=== PATIENT | female | born 1990 | race Caucasian/White ===

== ENCOUNTER 2021-02-22 21:09 | Emergency (ER) | payer MEDICARE, MEDICAID ==
[~2021-02-22] VITALS: Ht 154.9 cm; Wt 102.3 kg
[2021-02-22] MEDS ORDERED: TOPAMAX50 M1 PO (21:26)
[2021-02-22] MEDS ORDERED: CEPHALEXIN500 M1 PO (22:12)
[2021-02-22 22:22] VITALS: BP 129/93
== END 2021-02-22 22:22 | disposition home or self-care (01) ==
LOC: ED 21:09
DX: L03.115 Cellulitis of right lower limb (principal)

== ENCOUNTER 2023-12-07 00:10 | Emergency (ER) | payer MEDICARE, MEDICAID ==
[~2023-12-07 00:10] MED LIST: CEPHALEXIN500 M1 PO; TOPAMAX50 M1 PO
[2023-12-07] MEDS ORDERED: METRONIDAZOLE500 M1 PO (00:45)
[2023-12-07] MEDS ORDERED: CEPHALEXIN500 M1 PO (00:45)
[2023-12-07] MEDS ORDERED: Cephalexin 250 MG/5 ML Oral Susp 100 ML BOTTLE PO ONE (00:45)
[2023-12-07] MEDS ORDERED: metroNIDAZOLE 250 MG TABLET PO ONE (00:45)
[2023-12-07 00:54] VITALS: BP 125/80
[2023-12-07] MEDS ORDERED: Cephalexin 250 MG CAP PO ONE (01:00)
== END 2023-12-07 00:55 | disposition home or self-care (01) ==
LOC: ED 00:10
DX: L05.91 Pilonidal cyst without abscess (principal)